=== PATIENT | female | born 2000 | race Caucasian/White ===

== ENCOUNTER 2019-04-16 09:51 | Emergency (ER) | payer MEDICAID ==
[~2019-04-16] VITALS: Ht 149.9 cm; Wt 65.4 kg
[2019-04-16 09:53] VITALS: BP 97/64
--- NOTE | 2019-04-16 10:10 | NUR ---
Patient ambulated to bed 2. RN evaluating patient at bedside.
--- NOTE | 2019-04-16 10:19 | NUR ---
PATIENT IS A 18 Y/O FEMALE WHO PRESENTS TO THE ED C/O ABD PAIN. PER PT HAD A HAD AT [facility] [place] 04/01/19. PT IS NOW C/O PAIN. PT REPORTS 5/10 ACHING ABD PAIN THAT DOES NOT RADIATE. MILD SWELLING AND REDNESS, NO FOUL ODOR NOTED. PT REPORTS FOUL SMELL AND YELLOW DISCHARGE. PT DENIES CP, SOB. PT AWAKE AND ALERT, RR EVEN/UNLABORED. PT REPOSITIONED FOR COMFORT, BED IN LOWEST POSITION. ER MD DR. WHITE NOTFIED. WILL CONTINUE TO MONITOR. NKA DENIES PMH
[2019-04-16] MEDS ORDERED: ceFAZolin 1,000 MG VIAL IM ONE (10:55)
[2019-04-16] MEDS ORDERED: WATER STERILE 10 ML MC ONE (11:11)
--- NOTE | 2019-04-16 11:29 | NUR ---
Patient discharged by Dr. De La Cruz. Written and verbal after care instructions given and explained. Patient alert, oriented and verbalized understanding of instructions. Ambulatory with steady gait. All questions addressed prior to discharge. ID band removed. Patient advised to follow up with PMD. Rx of KEFLEX 500MG given. Patient educated on indication of medication including possible reaction and side effects. Opportunity to ask questions provided and answered.
== END 2019-04-16 11:26 | disposition home or self-care (01) ==
LOC: MED 09:51
DX: O86.09 Infection of obstetric surgical wound, other surgical site (principal); Z98.890 Other specified postprocedural states
CPT/HCPCS: 81025; 96372; 99283; J0690

== ENCOUNTER 2024-01-30 01:40 | Emergency (ER) | payer MEDICAID ==
[~2024-01-30] VITALS: Ht 152.4 cm; Wt 63.5 kg
[2024-01-30 02:08] VITALS: BP 138/67; PULSE 88; RESP 16; TEMP 97.8; O2SAT 98
[2024-01-30 04:05] VITALS: O2SAT 98
[2024-01-30] MEDS: DEXAMETHASONE 10 MG/ML VIAL PO ONE (04:53)
[2024-01-30] MEDS: KETOROLAC 30 MG/ML VIAL IM ONE (04:56)
[2024-01-30] MEDS ORDERED: NAPR-337 PO (05:06)
[2024-01-30 05:20] VITALS: BP 101/71; PULSE 68; RESP 17; TEMP 98.2; O2SAT 99
== END 2024-01-30 05:20 | disposition home or self-care (01) ==
LOC: MED 01:40
DX: J02.9 Acute pharyngitis, unspecified (principal); Z79.1 Long term (current) use of non-steroidal anti-inflammatories (NSAID)
CPT/HCPCS: 70360; 81025; 96372; 99283; J1100; J1885